=== PATIENT | male | born 1945 | race Caucasian/White ===

== ENCOUNTER 2017-10-15 12:55 | Emergency (ER) | payer MEDICARE | END 2017-10-15 13:10 | disposition left against medical advice (07) | LOC: ED 13:00 | DX: R53.1 Weakness (principal); Z53.21 Procedure and treatment not carried out due to patient leaving prior to being seen by health care provider ==

== ENCOUNTER 2017-10-16 08:47 | Emergency (ER) | payer MEDICARE, OTHER ==
[~2017-10-16] VITALS: Ht 180.3 cm; Wt 87.5 kg
[2017-10-16 08:50] VITALS: BP 95/57
[2017-10-16] MEDS ORDERED: MICROFIBRILLAR COLLAGEN 0.5GM/PACK TP ONE (09:30)
[2017-10-17] MEDS ORDERED: ENTA200T PO (10:02)
[2017-10-17] MEDS ORDERED: CARB1TAB44 PO (10:02)
== END 2017-10-16 09:56 | disposition home or self-care (01) ==
LOC: ED 09:50
DX: L03.116 Cellulitis of left lower limb (principal); G20 Parkinson's disease; Z76.0 Encounter for issue of repeat prescription
CPT/HCPCS: 99283

== ENCOUNTER 2017-10-17 09:35 | Inpatient (IN) | payer MEDICARE ==
[~2017-10-17] VITALS: Ht 153.7 cm; Wt 87.2 kg
[2017-10-17] MEDS ORDERED: ENTA200T PO (10:02)
[2017-10-17] MEDS ORDERED: CARB1TAB44 PO (10:02)
[2017-10-17] MEDS ORDERED: CEFTRIAXONE 1,000 MG ONE (10:28)
[2017-10-17] MEDS ORDERED: CEFTRIAXONE 1,000 MG IM ONE (10:30)
[2017-10-17 10:42] LABS: MEAN CORPUSCULAR HEMOGLOBIN 29.4 pg (27.5-34.5); MEAN CORPUSCULAR HGB CONC 32.9 g/dL (33.2-36.2); MEAN CORPUSCULAR VOLUME 89.3 fL (81-97); MEAN PLATELET VOLUME 9.2 fL (7.4-10.4); PLATELET COUNT 180 x10^3/uL (130-400); RED BLOOD COUNT 4.56 x10^6/uL (4.38-5.82); RED CELL DISTRIBUTION WIDTH 15.3 % (9.4-14.8)
[2017-10-17 10:49] LABS: MD YES
[2017-10-17 10:53] LABS: ALBUMIN 3.6 g/dL (3.4-5.0); ANION GAP 8 mmol/L (5-15); CHLORIDE 111 mmol/L (98-107)
[2017-10-17 10:54] LABS: CREATININE 1.35 mg/dL (0.7-1.3)
[2017-10-17 10:56] LABS: EOS#(MANUAL) 0.11 x10^3/uL (0.0-0.4); EOS% (MANUAL) 1 % (1-7); LYMPH#(MANUAL) 8.35 x10^3/uL (1-3.4); LYMPHS% (MANUAL) 78 % (22-44); MONOS#(MANUAL) 0.11 x10^3/uL (0.3-2.7); MONOS% (MANUAL) 1 % (2-9); SEG#(MANUAL) 2.14 x10^3/uL (1.8-6.8); SEGS% (MANUAL) 20 % (42-75)
[2017-10-17 11:00] LABS: <PLATELET ESTIMATE> ADEQUATE; <PLT MORPHOLOGY> NORMAL PLT MORPH; <RBC MORPHOLOGY> NORMAL
[2017-10-17] MEDS ORDERED: ENOXAPARIN 80 MG/0.8 ML ONE (11:50)
[2017-10-17 12:00] LABS: INTERNATIONAL NORMALIZED RATIO 1.04 (0.93-1.1); PROTHROMBIN TIME 10.7 Seconds (9.6-11.5)
[2017-10-17] MEDS ORDERED: SODIUM CHLORIDE FLUSH 10ML SYR IVF PRN (12:00)
[2017-10-17] MEDS ORDERED: SODIUM CHLORIDE FLUSH 10ML SYR IVF ONE (12:00)
[2017-10-17] MEDS ORDERED: ENOXAPARIN 80 MG/0.8 ML SQ ONE (12:00)
[2017-10-17 13:38] VITALS: BP 144/44
[2017-10-17] MEDS ORDERED: SODIUM CHLORIDE 0.9% 1,000 ML IV SCH (15:08)
[2017-10-17] MEDS ORDERED: PHARMACY MAY ADJ FOR RENAL FX MC PRN (15:30)
[2017-10-17] MEDS ORDERED: ACETAMINOPHEN 325 MG TABLET PO PRN (15:30)
[2017-10-17] MEDS: CARBIDOPA/LEVODOPA CR 50 MG/200 MG TABLET PO SCH ×2 (16:52→21:24)
[2017-10-17] MEDS: AMPICILLIN/SULBACTAM 3 GM in SODIUM CHLORIDE 0.9% 100 ML IV SCH ×2 (17:05→21:24)
[2017-10-17] MEDS: ENTACAPONE 200 MG TABLET PO SCH ×2 (17:05→21:24)
[2017-10-17 20:02] VITALS: BP 117/77
[2017-10-17] MEDS: APIXABAN 5 MG TABLET PO SCH (21:24)
[2017-10-18 01:30] VITALS: BP 98/56
[2017-10-18] MEDS: AMPICILLIN/SULBACTAM 3 GM in SODIUM CHLORIDE 0.9% 100 ML IV SCH ×4 (03:28→21:16)
[2017-10-18] MEDS: CARBIDOPA/LEVODOPA CR 50 MG/200 MG TABLET PO SCH ×5 (06:19→21:16)
[2017-10-18 08:15] VITALS: BP 109/61
[2017-10-18] MEDS: APIXABAN 5 MG TABLET PO SCH ×2 (09:14→21:16)
[2017-10-18] MEDS: ENTACAPONE 200 MG TABLET PO SCH ×3 (09:16→21:16)
[2017-10-18 12:45] VITALS: BP 99/54
[2017-10-18 14:22] LABS: MEAN CORPUSCULAR HEMOGLOBIN 29.5 pg (27.5-34.5); MEAN CORPUSCULAR HGB CONC 33.2 g/dL (33.2-36.2); MEAN PLATELET VOLUME 9.3 fL (7.4-10.4); PLATELET COUNT 168 x10^3/uL (130-400); RED BLOOD COUNT 4.27 x10^6/uL (4.38-5.82); RED CELL DISTRIBUTION WIDTH 15.4 % (9.4-14.8)
[2017-10-18 14:23] LABS: ANION GAP 7 mmol/L (5-15); CALCIUM 7.9 mg/dL (8.5-10.1); CHLORIDE 111 mmol/L (98-107); CREATININE 1.18 mg/dL (0.7-1.3)
[2017-10-18 14:54] LABS: BASOPHILS # (AUTO) 0.04 x10^3/uL (0-0.1); BASOPHILS % (AUTO) 1 % (0-1); EOSINOPHILS % (AUTO) 2 % (1-7); LYMPHOCYTES # (AUTO) 4.26 x10^3/uL (1-3.4); LYMPHOCYTES % (AUTO) 63 % (22-44); MD SCAN; MONOCYTES # (AUTO) 0.15 x10^3/uL (0.2-0.8); MONOCYTES % (AUTO) 2 % (2-9); NEUTROPHILS # (AUTO) 2.18 x10^3/uL (1.8-6.8); NEUTROPHILS % (AUTO) 32 % (42-75)
[2017-10-18] MEDS ORDERED: ZIPRASIDONE 20 MG INJ IM PRN (18:00)
[2017-10-18] MEDS ORDERED: ZIPRASIDONE 20MG CAPSULE PO PRN ×2 (18:00)
[2017-10-18 19:04] LABS: AMPHETAMINE SCREEN, URINE Negative (Negative); BARBITURATE SCREEN, URINE Negative (Negative); BENZODIAZEPINE SCREEN, URINE Negative (Negative); CANNABINOID SCREEN, URINE Negative (Negative); COCAINE SCREEN, URINE Negative (Negative); METHADONE SCREEN, URINE Negative (Negative); OPIATE SCREEN, URINE Negative (Negative)
[2017-10-18 19:45] VITALS: BP 100/52
[2017-10-19 01:49] VITALS: BP 125/80
[2017-10-19] MEDS: AMPICILLIN/SULBACTAM 3 GM in SODIUM CHLORIDE 0.9% 100 ML IV SCH (03:49)
[2017-10-19] MEDS: CARBIDOPA/LEVODOPA CR 50 MG/200 MG TABLET PO SCH ×5 (06:11→20:52)
[2017-10-19 08:00] VITALS: BP 130/80
[2017-10-19] MEDS: APIXABAN 5 MG TABLET PO SCH ×2 (09:08→20:52)
[2017-10-19] MEDS: ENTACAPONE 200 MG TABLET PO SCH ×3 (09:08→20:52)
[2017-10-19] MEDS: AMOXICILLIN/CLAV 875-125MG TABLET PO SCH ×2 (09:38→20:51)
[2017-10-19 12:40] VITALS: BP 113/74
[2017-10-19 18:56] VITALS: BP 130/53
[2017-10-20 01:37] VITALS: BP 103/58
[2017-10-20 05:07] LABS: MEAN CORPUSCULAR HEMOGLOBIN 30.2 pg (27.5-34.5); MEAN CORPUSCULAR HGB CONC 33.7 g/dL (33.2-36.2); MEAN CORPUSCULAR VOLUME 89.8 fL (81-97); MEAN PLATELET VOLUME 9.4 fL (7.4-10.4); PLATELET COUNT 164 x10^3/uL (130-400); RED CELL DISTRIBUTION WIDTH 15.2 % (9.4-14.8)
[2017-10-20 05:18] LABS: CHLORIDE 108 mmol/L (98-107)
[2017-10-20 05:28] LABS: ANION GAP 8 mmol/L (5-15); CALCIUM 8.3 mg/dL (8.5-10.1); CREATININE 1.25 mg/dL (0.7-1.3)
[2017-10-20 05:44] LABS: MD YES
[2017-10-20 05:45] LABS: BASOS% (MANUAL) 1 % (0-1); EOS% (MANUAL) 5 % (1-7); LYMPH#(MANUAL) 6.04 x10^3/uL (1-3.4); LYMPHS% (MANUAL) 61 % (22-44); MONOS% (MANUAL) 1 % (2-9); SEG#(MANUAL) 3.17 x10^3/uL (1.8-6.8); SEGS% (MANUAL) 32 % (42-75)
[2017-10-20 05:46] LABS: <PLATELET ESTIMATE> ADEQUATE; <PLT MORPHOLOGY> NORMAL PLT MORPH; <RBC MORPHOLOGY> NORMAL; SMUDGE CELLS 1+
[2017-10-20] MEDS: CARBIDOPA/LEVODOPA CR 50 MG/200 MG TABLET PO SCH ×3 (05:58→13:18)
[2017-10-20 07:13] VITALS: BP 115/77
[2017-10-20] MEDS: APIXABAN 5 MG TABLET PO SCH (09:33)
[2017-10-20] MEDS: AMOXICILLIN/CLAV 875-125MG TABLET PO SCH (09:33)
[2017-10-20] MEDS: ENTACAPONE 200 MG TABLET PO SCH (10:26)
[2017-10-20 10:41] LABS: CLOSTRIDIUM DIFFICILE ANTIGEN NEGATIVE; CLOSTRIDIUM DIFFICILE TOXIN NEGATIVE (Negative)
[2017-10-20] MEDS ORDERED: ENTA200T PO (13:42)
[2017-10-20] MEDS ORDERED: AMOX1TAB12 PO (13:42)
[2017-10-20] MEDS ORDERED: APIX5TAB PO (13:42)
[2017-10-20] MEDS ORDERED: CARB1TAB44 PO (13:42)
[2017-10-20 14:03] VITALS: BP 111/74
[2017-10-24] MEDS ORDERED: APIXABAN 5 MG TABLET PO SCH (21:00)
== END 2017-10-20 16:00 | disposition home or self-care (01) | DRG 299 ==
LOC: ED 11:31 → EDIP 11:45 → 4NOR 13:29 → DCLOUNGE 10-20 15:34
PROVIDERS: ADMIT Hospitalist; ATTEND Hospitalist
DX: I82.412 Acute embolism and thrombosis of left femoral vein (principal); N17.0 Acute kidney failure with tubular necrosis; L03.116 Cellulitis of left lower limb; G20 Parkinson's disease; L29.9 Pruritus, unspecified; R53.81 Other malaise; M48.00 Spinal stenosis, site unspecified; F41.9 Anxiety disorder, unspecified; Z82.49 Family history of ischemic heart disease and other diseases of the circulatory system; Z88.2 Allergy status to sulfonamides
CPT/HCPCS: 36415; 80048; 80307; 82040; 85025; 85610; 85730; 87324; 96372; J0295; J0696; J1650; J7030